=== PATIENT | male | born 1960 ===

== ENCOUNTER 2017-11-07 06:05 | Day surgery (SDC) | payer OTHER ==
[2017-11-07] MEDS ORDERED: RECTICARE30 GM TOP (10:45)
[2017-11-07] MEDS ORDERED: PERCOCET 5-3251 EACH PO (10:45)
== END 2017-11-07 17:09 | disposition home or self-care (01) ==
LOC: CIR.AMB 06:05
DX: K64.8 Other hemorrhoids (principal); K64.4 Residual hemorrhoidal skin tags